=== PATIENT | female | born 1960 | race Caucasian/White ===

== ENCOUNTER 2016-09-25 11:57 | Emergency (ER) | payer OTHER ==
[~2016-09-25] VITALS: Ht 167.6 cm; Wt 91.2 kg
[~2016-09-25 11:57] MED LIST: GOOD SENSE ASPI81 M3 PO; IBUPROFEN; KEFLEX500 MG PO; METFORMIN850 M1 PO; PRILOSEC40 MG PO; XARELTO10 M1 PO; XARELTO15 M1 PO
[2016-09-25 14:19] LABS: BASOPHIL % 0.6 % (0-2); PLATELET COUNT 307 x10^3mcL (130-400); RED CELL DISTRIBUTION WIDTH 14.2 % (11.5-14.5)
[2016-09-25 14:27] LABS: CALCIUM 9.3 mg/dL (8.5-10.1); CARBON DIOXIDE 29.7 mmol/L (21-32); CHLORIDE SERUM 104 mmol/L (98-107); CREATININE SERUM 0.7 mg/dL (0.6-1.0); GFR1 > 60 mL/min; GLUCOSE SERUM 93 mg/dL (74-106); POTASSIUM SERUM 4.1 mmol/L (3.5-5.1); SODIUM SERUM 140 mmol/L (136-145)
[2016-09-25 14:32] LABS: ALBUMIN 3.8 g/dL (3.4-5.0); ALKALINE PHOSPHATASE 104 U/L (46-116); ALT/SGPT 30 U/L (14-59); AST/SGOT 20 U/L (15-37); BILIRUBIN TOTAL 0.6 mg/dL (0.20-1.00); TOTAL PROTEIN, SERUM 7.7 g/dL (6.4-8.2)
[2016-09-25 16:11] VITALS: BP 150/61
== END 2016-09-25 16:11 | disposition home or self-care (01) ==
LOC: ED 11:57
PROVIDERS: Emergency Medicine
DX: M54.30 Sciatica, unspecified side (principal); R03.0 Elevated blood-pressure reading, without diagnosis of hypertension; I10 Essential (primary) hypertension; R10.31 Right lower quadrant pain
CPT/HCPCS: 36415; J1885; Q0092

== ENCOUNTER 2018-10-01 18:18 | Emergency (ER) | payer OTHER ==
[~2018-10-01] VITALS: Ht 170.2 cm; Wt 91.6 kg
[2018-10-01 18:22] VITALS: Ht 170.2 cm; Wt 91.6 kg
[2018-10-01 19:23] LABS: BASOPHIL % 0.6 % (0-2); PLATELET COUNT 300 x10^3mcL (130-400); RED CELL DISTRIBUTION WIDTH 14.2 % (11.5-14.5)
[2018-10-01 19:35] LABS: CALCIUM 9.5 mg/dL (8.5-10.1); CARBON DIOXIDE 27.3 mmol/L (21-32); CHLORIDE SERUM 107 mmol/L (98-107); GFR1 > 60 mL/min; GLUCOSE SERUM 93 mg/dL (74-106); POTASSIUM SERUM 4.3 mmol/L (3.5-5.1); SODIUM SERUM 143 mmol/L (136-145)
[2018-10-01 19:47] LABS: ALBUMIN 3.6 g/dL (3.4-5.0); ALKALINE PHOSPHATASE 103 U/L (46-116); ALT/SGPT 28 U/L (14-59); AST/SGOT 14 U/L (15-37); BILIRUBIN TOTAL 0.32 mg/dL (0.20-1.00); LIPASE 150 IU/L (73-393); MAGNESIUM 2.2 mg/dL (1.8-2.4); T4(THYROXINE) 6.6 ug/dL (4.7-13.3); TOTAL PROTEIN, SERUM 7.4 g/dL (6.4-8.2)
[2018-10-01 22:20] VITALS: BP 130/74
[2018-10-01 22:22] LABS: UA SPECIFIC GRAVITY 1.025 (1.005-1.035); microscopic required? YES; urine erythrocyte NEGATIVE (NEGATIVE)
== END 2018-10-01 22:20 | disposition home or self-care (01) ==
LOC: ED 18:18
PROVIDERS: Emergency Medicine
DX: I82.811 Embolism and thrombosis of superficial veins of right lower extremity (principal); I10 Essential (primary) hypertension; Z90.89 Acquired absence of other organs; Z98.890 Other specified postprocedural states
CPT/HCPCS: 82962; J3490; J7042

== ENCOUNTER 2018-10-02 11:25 | Emergency (ER) | payer OTHER ==
[~2018-10-02] VITALS: Ht 170.2 cm; Wt 94.3 kg
[2018-10-02 11:28] VITALS: Ht 170.2 cm; Wt 94.3 kg
[2018-10-02 12:58] VITALS: BP 158/76
== END 2018-10-02 12:58 | disposition home or self-care (01) ==
LOC: ED 11:25
DX: G62.9 Polyneuropathy, unspecified (principal); I10 Essential (primary) hypertension; Z90.89 Acquired absence of other organs; Z98.890 Other specified postprocedural states; Z86.718 Personal history of other venous thrombosis and embolism

== ENCOUNTER 2018-10-03 15:06 | Emergency (ER) | payer OTHER ==
[~2018-10-03] VITALS: Ht 170.2 cm; Wt 94.3 kg
[2018-10-03 15:10] VITALS: Ht 170.2 cm; Wt 94.3 kg
[2018-10-03 18:45] VITALS: BP 132/62
== END 2018-10-03 18:45 | disposition home or self-care (01) ==
LOC: ED 15:06
DX: M54.31 Sciatica, right side (principal); Z90.89 Acquired absence of other organs
CPT/HCPCS: J1885; Q0092

== ENCOUNTER 2018-10-05 12:03 | Emergency (ER) | payer OTHER ==
[~2018-10-05] VITALS: Ht 170.2 cm; Wt 94.3 kg
[2018-10-05 12:24] VITALS: BP 153/88; Ht 170.2 cm; Wt 94.3 kg
== END 2018-10-05 14:39 | disposition home or self-care (01) ==
LOC: ED 12:03
DX: M54.31 Sciatica, right side (principal); I10 Essential (primary) hypertension; Z90.89 Acquired absence of other organs
CPT/HCPCS: J1885